=== PATIENT | male | born 1965 | race Two or more races ===

== ENCOUNTER 2020-05-01 00:13 | Emergency (ER) | payer OTHER ==
[~2020-05-01] VITALS: Ht 180.3 cm; Wt 89.8 kg
[~2020-05-01 00:13] MED LIST: FLOVENT DISKU250 MCG IH; PREDNISONE10 MG PO; PREDNISONE2.5 MG PO; PREDNISONE20 MG PO; PROTONIX40 MG PO; RAYOS5 MG PO; XOPENEX1.25 MG/0. IH; ZANTAC150 MG PO
[2020-05-01] MEDS ORDERED: DESCOVY 200-251 EACH (00:49)
[2020-05-01] MEDS ORDERED: PEPCID AC20 MG PO (03:23)
[2020-05-01] MEDS ORDERED: INTESTINEX680 M1 PO (03:23)
[2020-05-01] MEDS ORDERED: AMOX-CLAV 875-1 EACH PO (03:23)
[2020-05-01] MEDS ORDERED: DICLOFENAC POTA50 MG PO (03:23)
== END 2020-05-01 04:08 ==
LOC: ER 00:13
DX: S61.225A Laceration with foreign body of left ring finger without damage to nail, initial encounter (principal); W54.0XXA Bitten by dog, initial encounter; Y93.89 Activity, other specified; Y92.89 Other specified places as the place of occurrence of the external cause; Y99.8 Other external cause status